=== PATIENT | female | born 1990 | race Caucasian/White ===

== ENCOUNTER 2021-07-11 02:40 | Inpatient (IN) | payer OTHER ==
[~2021-07-11] VITALS: Wt 65.0 kg
[2021-07-11 04:29] LABS: HEMOGLOBIN 11.3 gm/dl (12.3-15.3); RED BLOOD COUNT 4.05 M/UL (4.00-5.10); WHITE BLOOD COUNT 12.2 K/UL (4.5-11.0)
[2021-07-11] MEDS ORDERED: COLACE 100MG C100 MG PO ×2 (07:50→07:52)
[2021-07-11] MEDS ORDERED: IBUPROFEN600 MG PO ×2 (07:50→07:52)
[2021-07-11] MEDS ORDERED: FERROUS SULFAT325 MG PO ×2 (07:50→07:52)
[2021-07-12 06:15] LABS: HEMOGLOBIN 11.2 gm/dl (12.3-15.3)
== END 2021-07-12 16:20 | disposition home or self-care (01) | DRG 807 ==
LOC: GENOP 02:40 → OB 03:46
PROVIDERS: ADMIT Obstetrics & Gynecology
PROC: 10E0XZZ Delivery of Products of Conception, External Approach (ICD-10-PCS; principal; 2021-07-11)
PROC: 0KQM0ZZ Repair Perineum Muscle, Open Approach (ICD-10-PCS; 2021-07-11)
PROC: 10907ZC Drainage of Amniotic Fluid, Therapeutic from Products of Conception, Via Natural or Artificial Opening (ICD-10-PCS; 2021-07-11)
PROC: 3E033VJ Introduction of Other Hormone into Peripheral Vein, Percutaneous Approach (ICD-10-PCS; 2021-07-11)
PROC: 3E0234Z Introduction of Serum, Toxoid and Vaccine into Muscle, Percutaneous Approach (ICD-10-PCS; 2021-07-11)
DX: O70.1 Second degree perineal laceration during delivery (principal); Z37.0 Single live birth; Z3A.38 38 weeks gestation of pregnancy; Z20.822 Contact with and (suspected) exposure to COVID-19; Z98.890 Other specified postprocedural states; Z23 Encounter for immunization
CPT/HCPCS: 85014; 85018; 85025; 90715; J2590; J7120; U0002